=== PATIENT | female | born 1970 | race Caucasian/White ===

== ENCOUNTER → 2020-10-04 | Outpatient (CLI) | payer OTHER ==
[~2020-10-04] MED LIST: ASPIRIN CHEWABL81 MG PO; ASPIRIN EC81 MG PO; BASAGLAR K100 UNIT/1 SQ; FENOFIBRATE145 MG PO; ISOSORBIDE MONO30 MG PO; KEFLEX CAP 500500 MG PO; LISINOPRIL2.5 MG PO; METOPROLOL TART25 MG PO; NORVASC 5 MG TAB5 MG PO; PRAVASTATIN SOD40 MG PO; RANITIDINE HCL150 MG PO; TORADOL 10 MG T10 MG PO
== END ==
LOC: HEART 5 08-15 08:00
DX: R07.9 Chest pain, unspecified (principal); I34.0 Nonrheumatic mitral (valve) insufficiency
CPT/HCPCS: 78452; 93306; A9502; J2785

== ENCOUNTER 2020-10-17 22:12 | Emergency (ER) | payer OTHER ==
[~2020-10-17 22:12] MED LIST changes: -KEFLEX CAP 500500 MG PO; -TORADOL 10 MG T10 MG PO
[2020-10-17 22:50] LABS: HEMOGLOBIN 16.5 gm/dl (12.3-15.3); RED BLOOD COUNT 5.28 M/UL (4.00-5.10); WHITE BLOOD COUNT 15.3 K/UL (4.5-11.0)
[2020-10-17 23:11] LABS: BUN/CREATININE RATIO 25 (0-10)
[2020-10-18] MEDS ORDERED: TORADOL 10 MG T10 MG PO (00:13)
[2020-10-18] MEDS ORDERED: KEFLEX CAP 500500 MG PO (00:13)
== END 2020-10-18 00:35 | disposition home or self-care (01) ==
LOC: ER1 22:12
PROVIDERS: Family Medicine
DX: R10.32 Left lower quadrant pain (principal); E11.65 Type 2 diabetes mellitus with hyperglycemia; I25.2 Old myocardial infarction; I50.9 Heart failure, unspecified
CPT/HCPCS: 36415; 80053; 81001; 85025; 87086; 96374; 96375; 99284; J0690; J1885; J2405